=== PATIENT | male | born 1960 | race Caucasian/White ===

== ENCOUNTER 2021-02-07 22:01 | Emergency (ER) | payer OTHER ==
[~2021-02-07 22:01] MED LIST: PERCOCET 5/325 T1 EA PO
[2021-02-08] MEDS ORDERED: HYDROCODONE-AC1 EACH PO (05:06)
== END 2021-02-08 05:33 | disposition home or self-care (01) ==
LOC: ER1 22:01
DX: S13.4XXA Sprain of ligaments of cervical spine, initial encounter (principal); S23.3XXA Sprain of ligaments of thoracic spine, initial encounter; S33.5XXA Sprain of ligaments of lumbar spine, initial encounter; S30.1XXA Contusion of abdominal wall, initial encounter; S60.222A Contusion of left hand, initial encounter; S80.12XA Contusion of left lower leg, initial encounter; V49.40XA Driver injured in collision with unspecified motor vehicles in traffic accident, initial encounter; Y92.410 Unspecified street and highway as the place of occurrence of the external cause
CPT/HCPCS: 70450; 72125; 72128; 72131; 73130; 73590; 99284; Q9967

== ENCOUNTER → 2021-04-14 | Outpatient (CLI) | payer OTHER ==
[~2021-04-14] MED LIST changes: +HYDROCODONE-AC1 EACH PO
== END ==
LOC: KOH-I 13:19
DX: J33.9 Nasal polyp, unspecified (principal)
CPT/HCPCS: 70486

== ENCOUNTER → 2021-04-30 | Outpatient (CLI) | payer OTHER | LOC: KOH-I 11:04 | DX: M25.561 Pain in right knee (principal) | CPT/HCPCS: 73562 ==

== ENCOUNTER → 2021-10-01 | Outpatient (CLI) | payer OTHER ==
[~2021-10-01] MED LIST changes: +FUROSEMIDE20 MG PO; +LISINOPRIL20 MG PO; +MOBIC15 MG PO; +TYLENOL325 MG PO
== END ==
LOC: KOH-I 13:41
DX: F17.210 Nicotine dependence, cigarettes, uncomplicated (principal)
CPT/HCPCS: 71271

== ENCOUNTER → 2022-03-23 | Outpatient (CLI) | payer OTHER | LOC: HEART 5 10:02 | DX: I73.9 Peripheral vascular disease, unspecified (principal) ==